=== PATIENT | male | born 1965 | race Caucasian/White ===

== ENCOUNTER 2024-12-09 10:54 | Emergency (ER) | payer OTHER, SELFPAY ==
[2024-12-09 10:56] VITALS: BP 136/88
--- NOTE | 2024-12-09 13:20 | ED.GENMED ---
History of Present Illness
General
Chief Complaint: Back Pain
Source: patient
Time Seen by Provider: 12/09/24 13:07
History of Present Illness
History of Present Illness:
58-year-old male presents the emergency room complaining of back pain. Patient states he [place] having discomfort [place] He then went on a long drive to take his daughter oncology visits. After the long drive his
back pain was much worse. The pain is specifically located in the lower lumbar area and extends to the right hip. The pain does not migrate down to the foot. When asked if he has any numbness or tingling he states he has chronic numbness and
tingling after previous back surgery but denies any new issues. His ability to stand up straight is limited by pain. Patient denies any fever or chills. Denies any IV drug use. Patient denies any bowel or bladder dysfunction.
Past History
Past History
ED Past Medical History: HTN (back pain) and Other
Phy Exam
Physical Exam
Physical Exam:
General: Awake, Alert, Oriented X3. No acute distress.
Vitals: unremarkable
Head: Atraumatic
Eyes: Pupils equal, EOMI
Throat: Airway intact, no exudates
Neck: Trachea midline
Lungs: Clear and equal b/l
Heart: Regular rate, no murmurs
Abd: Soft, Nontender, No pulsatile mass
Back. Previous lumbar surgical scar noted. Tenderness is located specifically at the L5-S1 region. No rash.
Neuro: Sensation muscle strength intact bilaterally. Reflexes intact bilaterally.
Skin: Warm, dry, no rash
Extremities: pulses equal b/l, no edema
Course
Orders/Labs/Results
Orders:
Orders
12/09/24 13:19
Ketorolac [Toradol] 30 mg IM NOW STA
Oxycodone [Roxicodone] 5 mg PO NOW STA
Prednisone [Deltasone] 50 mg PO NOW STA
12/09/24 15:27
Oxycodone [Roxicodone] 5 mg PO NOW STA
Vital Signs
Initial and Last Documented VS:
Initial Vital Signs
Temp Pulse Resp BP Pulse Ox
98.1 F 79 18 136/88 98
12/09/24 10:56 12/09/24 10:56 12/09/24 10:56 12/09/24 10:56 12/09/24 10:56
Last Documented Vital Signs
Temp Pulse Resp BP Pulse Ox
98.1 F 79 18 136/88 98
12/09/24 10:56 12/09/24 10:56 12/09/24 10:56 12/09/24 10:56 12/09/24 13:23
MDM/Problems Addressed
Differential Diagnosis Includes:
Lumbar strain, disc herniation, radiculopathy
MDM/Problems Addressed:
Patient presents with right-sided back pain radiating to his hip and thigh. There is no radiation below the knee. There is no bowel or bladder dysfunction. Symptoms do not really seem consistent with a radiculopathy and certainly not consistent
with cauda equina syndrome. Given the context of worsening with sitting on the beach and sitting in a car for long peers time I think this is more likely spasm. Will treat with analgesia, muscle relaxants and a short course of steroids. Patient
does have an appointment with [facility] in the near future.
*Pulse Oximetry
SaO2: 98
Oxygen Mode of Delivery: Room air
Patient hypoxic: no
*Critical Care Note
Total Time (30-74mins, 75-104mins- exclusive of procedures): Not Applicable
ED Attending Note
-
Portions of this chart may have been created with voice recognition software.� Occasional wrong word or��sound alike� substitutions may have occurred due to the inherent limitations of voice recognition software.
Discharge Plan
Departure
Patient Disposition: Home (Routine Discharge)
Date of Disposition: 12/09/24
Time of Disposition: 15:13
Patient with high blood pressure during this ER visit?: No
Condition: Good
Discharge Problem:
Low back pain
Instructions: Low Back Pain (DC)
Prescriptions:
New
oxycodone 5 mg tablet
5 mg PO Q6H PRN (Reason: Pain) Qty: 12 0RF
prednisone 20 mg tablet
40 mg PO DAILY Qty: 8 0RF
metaxalone 800 mg tablet
800 mg PO TID PRN (Reason: muscle pain) Qty: 20 0RF
No Action
gabapentin 300 MG capsule
300 mg PO TIDPRN PRN (Reason: pain)
ramipril 5 MG capsule
5 mg PO DAILY
hydrochlorothiazide 12.5 MG tablet
12.5 mg PO DAILY
hydrocodone-acetaminophen [[place]] 1 EACH tablet
1 ea PO Q6HPRN PRN (Reason: pain) Qty: 30 0RF
Rx Instructions:
Take 1 tablet four times a day, every 6 hours for pain
lorazepam 1 MG tablet
1 mg PO TIDPRN PRN (Reason: pain/spasms) Qty: 40 0RF
prednisone 10 mg Tablet
See Rx Instructions .ROUTE .COMPLEX Qty: 30 0RF
Rx Instructions:
Take By Mouth:
40 mg daily x3 days, 30 mg daily x3 days,
20 mg daily x3 days, 10 mg daily x3 days.
hydrocodone-acetaminophen 5-325 mg tablet
1 tab PO Q6H PRN (Reason: pain) Qty: 10 0RF
Referrals:
Esme Evans MD [Family Provider, Internal Medicine]
Activity Restrictions/Additional Instructions:
You can take 2 tablets of Aleve twice a day and 1000 g of Tylenol 4 times a day to help control your pain. If you need further medication that takes the Skelaxin which you can take every 8 hours. If you need further medication then I have also
prescribed oxycodone which you can take 1 tablet every 6 hours. Follow-up with [facility] as scheduled.
Interventions
Interventions:
*Risk Screen - Suicide Last Done: 12/09/24 10:56
*General Assessment Last Done: 12/09/24 13:51
*Neglect/Abuse Screening Last Done: 12/09/24 10:56
*ED- Fall Risk Assessment Last Done: 12/09/24 13:51
*ED COVID-19 Vaccine History Last Done: 12/09/24 13:51
*Nursing Disposition Last Done: 12/09/24 16:07
ED-Musculoskeletal Assessment Last Done: 12/09/24 13:51
Discharge Date and Time
Discharge Date/Time: 12/09/24 16:08
Print Language: LITHUANIAN
[2024-12-09] MEDS: DELTASONE 50 MG PO (13:29)
[2024-12-09] MEDS: ROXICODONE 5 MG PO ×2 (13:29→15:36)
[2024-12-09] MEDS: TORADOL 30 MG IM (13:29)
== END 2024-12-09 16:08 | disposition home or self-care (01) ==
LOC: EMR 10:54
PROVIDERS: EMERGENCY PHYSICIAN Emergency Medicine; FAMILY PHYSICIAN Internal Medicine
DX: M54.50 Low back pain, unspecified (principal); I10 Essential (primary) hypertension
CPT/HCPCS: 99282; 96372

== ENCOUNTER → 2024-12-16 12:27 | Outpatient (REF) | payer OTHER, SELFPAY | LOC: PAVMRI 12:27 | PROVIDERS: ATTENDING PHYSICIAN Physician Assistant Surgical; FAMILY PHYSICIAN Internal Medicine | DX: M54.16 Radiculopathy, lumbar region (principal) | CPT/HCPCS: 72148 ==

== ENCOUNTER → 2025-04-10 07:42 | Outpatient (REF) | payer OTHER, SELFPAY | LOC: HWRAD 07:42 | PROVIDERS: ATTENDING PHYSICIAN Nurse Practitioner Family | DX: N28.1 Cyst of kidney, acquired (principal) | CPT/HCPCS: 76770 ==